=== PATIENT | female | born 1990 | race Asian ===

== ENCOUNTER 2022-12-14 20:00 | Emergency (ER) | payer OTHER ==
[~2022-12-14] VITALS: Ht 160 cm; Wt 75.7 kg
[2022-12-14 20:10] VITALS: BP 120/90
--- NOTE | 2022-12-14 20:13 | NUR ---
TO LOBBY A/W BED AMBULATORY
--- NOTE | 2022-12-14 22:45 | NUR ---
PT TO BED 03.
--- NOTE | 2022-12-14 23:00 | NUR ---
c/o lower back pain 04/21 x 1 week. pt denies taking anything to relieve pain. per pt, pmhx bipolar disorder and depression, denies allergies.
[2022-12-14 23:03] LABS: APPEARANCE,URINE CLEAR (CLEAR); BILIRUBIN,URINE NEGATIVE (NEGATIVE); BLOOD, URINE NEGATIVE (NEGATIVE); COLOR,URINE YELLOW (YELLOW); LEUKOCYTE ESTERASE ,URINE 2+ (NEGATIVE); NITRITE, URINE NEGATIVE (NEGATIVE); UGLUCOSE NEGATIVE (NEGATIVE)
[2022-12-14] MEDS ORDERED: KETOROLAC 30 MG/ML VIAL IM ONE (23:25)
[2022-12-14] MEDS ORDERED: cefTRIAXone 1,000 MG in LIDOCAINE MPF 1% 2.1 ML IM ONE (23:25)
[2022-12-14] MEDS ORDERED: LIDOCAINE MPF 1% 5 ML ONE (23:32)
[2022-12-14] MEDS ORDERED: cefTRIAXone 1,000 MG VIAL ONE (23:32)
[2022-12-15] MEDS ORDERED: CEPH-588 PO (00:32)
[2022-12-15] MEDS ORDERED: LID5T TP (00:32)
[2022-12-15] MEDS ORDERED: NAPR-54 PO (00:32)
[2022-12-15 01:06] VITALS: BP 127/61
--- NOTE | 2022-12-15 01:10 | NUR ---
Patient discharged with v/s stable. Written and verbal after care instructions given and explained. New keflex, lidocaine patch, and naproxen. Patient verbalized understanding. Ambulatory with steady gait. All questions addressed prior to discharge. Advised to follow up with PMD.
--- NOTE | 2022-12-17 10:51 | NUR ---
LATE ENTRY POSITIVE [facility]A CULTURE AND DOORS PREFITTER RECEIVED, DR KIM MADE AWARE, TREATMENT APPROPRIATE W/ ATB, NO FURTHER ORDERS
== END 2022-12-15 01:10 | disposition home or self-care (01) ==
LOC: MED 20:00 → EDSEX 20:00 → MED 12-15 01:10
DX: N39.0 Urinary tract infection, site not specified (principal); M54.50 Low back pain, unspecified; F32.A Depression, unspecified; Z79.899 Other long term (current) drug therapy
CPT/HCPCS: 72100; 81001; 81025; 87086; 96372; 99284; J0696; J1885; J2001

== ENCOUNTER 2023-10-17 22:55 | Emergency (ER) | payer OTHER ==
[~2023-10-17] VITALS: Ht 160 cm; Wt 73.9 kg
[~2023-10-17 22:55] MED LIST: CEPH-588 PO; LID5T TP; NAPR-54 PO
[2023-10-17 23:19] VITALS: BP 141/90; PULSE 114; RESP 20; TEMP 99.5; O2SAT 100
[2023-10-17 23:30] VITALS: BP 141/90; PULSE 114; RESP 20; TEMP 99.5; O2SAT 100
[2023-10-18] MEDS: KETOROLAC 30 MG/ML VIAL IM ONE (01:25)
[2023-10-18] MEDS ORDERED: DIPH25TA53 PO (01:25)
== END 2023-10-18 01:33 | disposition home or self-care (01) ==
LOC: MED 22:55
DX: B08.4 Enteroviral vesicular stomatitis with exanthem (principal); J02.9 Acute pharyngitis, unspecified; F32.A Depression, unspecified; Z79.899 Other long term (current) drug therapy
CPT/HCPCS: 96372; 99283; J1885